=== PATIENT | female | born 1955 | race Caucasian/White ===

== ENCOUNTER 2017-09-20 15:35 | Emergency (ER) | payer OTHER ==
[~2017-09-20] VITALS: Ht 165.1 cm; Wt 61.4 kg
[~2017-09-20 15:35] MED LIST: MEDR4PAK3 PO; META800 PO; MORP30SU PO; TRAM50 PO
[2017-09-20 15:49] VITALS: BP 138/80; PULSE 66; RESP 18; TEMP 97.8; O2SAT 95
[2017-09-20] MEDS ORDERED: PERI0.126 SWISH-SPIT (16:12)
[2017-09-20] MEDS ORDERED: IBUP1TAB7 PO (16:12)
[2017-09-20] MEDS ORDERED: CLIN300C5 PO (16:12)
--- NOTE | 2017-09-20 16:13 | PD ---
HPI Chief Complaint: Oral / Dental Pain or Problem Time Seen by Provider: 16:03 Travel History International Travel<30 days: No Contact w/Intl Traveler<30days: No Traveled to known affect area: No History of Present Illness HPI 62-year-old female presents to the emergency department for evaluation of dental pain. Patient reports right-sided dental pain for 3 days. She is concerned she has infection. She states she has been unable to follow-up with a dentist. She is hoping for antibiotics. She denies any fevers or chills. She has no chronic medical problems and takes no prescribed medications. Her chart has history of allergy to codeine. However, she denies this and wants this to be removed. Patient reports no known allergies. Patient states pain is 6/10, aching and throbbing, without radiation. Mild severity. PFSH Past Medical History Medical History: Denies Significant Hx Arthritis: Yes Asthma: Yes Anxiety: Yes Depression: Yes Cancer: Yes (SKIN CA) Cardiovascular Problems: Yes (MVP PROLAPSE) COPD: Yes Diminished Hearing: No Genitourinary: Yes (MENOPAUSE) Headaches: Yes Musculoskeletal: Yes (CHRONIC PAIN IN NECK, BACK) Respiratory: Yes (COPD) Integumentary: Yes (HX BASAL CELL CA REMOVAL - FACE) Immunizations Current: Yes Migraines: Yes Pneumonia: Yes Seizures: Yes (?) PNEUMOCCOCAL Vaccine (Year): 2 ?: Not Menopausal: Yes Tubal Ligation: Yes Past Surgical History Gynecologic Surgery: Yes (FALLOPIAN TUBE REMOVAL) Tonsillectomy: Yes Other Surgery: Yes (BREAST AUGMENTATION) Social History Alcohol Use: No Tobacco Use: No (QUIT 1997) Substance Use: No Allergies-Medications (Allergen,Severity, Reaction): Coded Allergies: No Known Allergies (Unverified , 09/20/17) Reported Meds & Prescriptions Reported Meds & Active Scripts Active No Active Prescriptions or Reported Medications Review of Systems Except as stated in HPI: all other systems reviewed are Neg Physical Exam Narrative GENERAL: Well-nourished, well-developed female patient, afebrile. SKIN: Focused skin assessment warm/dry. HEAD: Normocephalic. Atraumatic. ENT: Mucosa pink and moist. No erythema or exudates. No uvular edema. No uvular , palatal, or tonsillar deviation. Airway patent. Nasal turbinates appear normal without nasal blood, purulent drainage or septal hematoma. Bilateral tympanic membranes clear without erythema or perforation. Tooth #31 is broken. She is tender to palpation to this area including gingiva. No obvious fluctuance noted. EYES: No scleral icterus. No injection or drainage. NECK: Supple, trachea midline. No JVD or lymphadenopathy. CARDIOVASCULAR: Regular rate and rhythm without murmurs, gallops, or rubs. RESPIRATORY: Breath sounds equal bilaterally. No accessory muscle use. Lung sounds are clear to auscultation. MUSCULOSKELETAL: No cyanosis, or edema. Data Data Last Documented VS Vital Signs Date Time Temp Pulse Resp B/P (MAP) Pulse Ox O2 Delivery O2 Flow Rate FiO2 09/20/17 15:49 97.8 66 18 138/80 (99) 95 Orders Orders Ibuprofen (Motrin) (09/20/17 16:15) Clindamycin (Cleocin) (09/20/17 16:15) [facility] Medical Decision Making Medical Screen Exam Complete: Yes Emergency Medical Condition: Yes Medical Record Reviewed: Yes Differential Diagnosis Dental abscess versus gingivitis versus dental caries versus dentalgia versus broken tooth Narrative Course 62-year-old female presents to the emergency department for evaluation of dental pain for 3 days. Patient will be started on clindamycin, ibuprofen, Peridex oral solution. She is given her first dose of ibuprofen and clindamycin in the emergency department. Patient is instructed on need to follow-up with a dentist. The patient was discharged in stable condition with instructions, including return instructions and follow up instructions. Diagnosis Primary Impression: Dental abscess Referrals: Dentist call for appointment Patient Instructions: Dental Abscess (ED), General Instructions Additional Instructions: Take antibiotic as directed until gone. Take ibuprofen as directed as needed with food for pain. Use Peridex oral solution as directed. Follow up with a dentist. Return to the emergency department for any acute worsening of symptoms. Med/Other Pt SpecificInfo: Prescription(s) given Scripts Chlorhexidine Gluconate (Mouth) Liq (Peridex Liq) 0.12% Soln 15 ML SWISH-SPIT BID, #473 ML 0 Refills Prov: Shahla Stewart 09/20/17 Ibuprofen (Ibuprofen) 800 Mg Tab 800 MG PO TID Y for PAIN SCALE 1 TO 10, #21 TAB 0 Refills Prov: Shahla Stewart 09/20/17 Clindamycin (Clindamycin) 300 Mg Cap 300 MG PO Q6H for Infection for 10 Days, #40 CAP 0 Refills Prov: Shahla Stewart 09/20/17 Disposition: 01 DISCHARGE HOME Condition: Stable Shahla Stewart Sep 20, 2017 16:13
[2017-09-20] MEDS ORDERED: IBUPROFEN 800 MG TAB PO ONE (16:15)
[2017-09-20] MEDS ORDERED: CLINDAMYCIN 150 MG CAP PO ONE (16:15)
== END 2017-09-20 17:01 | disposition home or self-care (01) ==
LOC: PHEFT 15:35
DX: K04.7 Periapical abscess without sinus (principal); F32.9 Major depressive disorder, single episode, unspecified; F41.9 Anxiety disorder, unspecified; J44.9 Chronic obstructive pulmonary disease, unspecified; G89.29 Other chronic pain; Z85.828 Personal history of other malignant neoplasm of skin; Z87.891 Personal history of nicotine dependence
CPT/HCPCS: 99283